=== PATIENT | male | born 1975 | race Caucasian/White ===

== ENCOUNTER 2025-07-26 21:11 | Emergency (ER) | payer MEDICAID, SELFPAY ==
[~2025-07-26] VITALS: Ht 175.3 cm; Wt 84.1 kg
[~2025-07-26 21:11] MED LIST: NOCURR
[2025-07-26 21:26] VITALS: BP 144/89; PULSE 101; RESP 16; TEMP 98.6; O2SAT 98
[2025-07-26] MEDS: IBUPROFEN 400 MG TABLET PO ONE (23:06)
[2025-07-26] MEDS: ACETAMINOPHEN 500 MG TABLET PO ONE (23:06)
[2025-07-26] MEDS: DOXYCYCLINE HYCLATE 100 MG TABLET PO ONE (23:06)
[2025-07-26] MEDS ORDERED: DOXY-354 PO (23:43)
== END 2025-07-26 23:57 | disposition home or self-care (01) ==
LOC: EMS 21:11
DX: S61.401A Unspecified open wound of right hand, initial encounter (principal); S60.221A Contusion of right hand, initial encounter; I10 Essential (primary) hypertension; F17.210 Nicotine dependence, cigarettes, uncomplicated; X58.XXXA Exposure to other specified factors, initial encounter; Y93.89 Activity, other specified; Y92.89 Other specified places as the place of occurrence of the external cause; Y99.8 Other external cause status
CPT/HCPCS: 99284; 73130-TC; Z7502; Z7610